=== PATIENT | female | born 1955 | race African-American/Black ===

== ENCOUNTER 2017-04-30 10:01 | Emergency (ER) | payer OTHER ==
[~2017-04-30] VITALS: Ht 170.2 cm; Wt 75.0 kg
[2017-04-30 10:11] VITALS: BP 187/98; PULSE 84; RESP 18; TEMP 98.4; O2SAT 97
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
[2017-04-30 11:30] VITALS: BP 175/82; PULSE 82; RESP 20; O2SAT 97
[2017-04-30] MEDS ORDERED: SIMV80TA PO (11:32)
[2017-04-30] MEDS ORDERED: ADVA100A INH (11:32)
[2017-04-30] MEDS ORDERED: ALBUAER3 INH (11:32)
[2017-04-30] MEDS ORDERED: IBUPROFEN 600 MG TAB PO ONE (11:45)
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
== END 2017-04-30 12:41 | disposition home or self-care (01) ==
LOC: NEPD 10:01
DX: S39.012A Strain of muscle, fascia and tendon of lower back, initial encounter (principal); S16.1XXA Strain of muscle, fascia and tendon at neck level, initial encounter; V49.50XA Passenger injured in collision with unspecified motor vehicles in traffic accident, initial encounter
CPT/HCPCS: 72040; 72100; 73501; 99284